=== PATIENT | male | born 1970 | race Caucasian/White ===

== ENCOUNTER 2016-05-26 11:21 | Emergency (ER) | payer OTHER, MEDICAID ==
[~2016-05-26] VITALS: Wt 98.0 kg
[~2016-05-26 11:21] MED LIST: BEN50 PO; CLIN-73 PO
[2016-05-26] MEDS ORDERED: SOD CHLORIDE 0.9% 1,000 ML IV STA (12:21)
[2016-05-26 12:35] LABS: ADD SCAN DIFF NO
[2016-05-26 12:37] LABS: BASOPHIL # 0.1 10^3/ul (0.0-0.1); BASOPHILS % 0.4 % (0.0-2.0); EOSINOPHILS # 0.1 10^3/ul (0.0-0.5); EOSINOPHILS % 0.5 % (0.0-7.0); HEMATOCRIT 41.6 % (42.0-52.0); HEMOGLOBIN 13.9 g/dl (14.0-18.0); LYMPHOCYTES # 1.5 10^3/ul (0.8-2.9); LYMPHOCYTES % 13.2 % (15.0-51.0); MEAN CORPUSCULAR HEMOGLOBIN 29.3 pg (29.0-33.0); MEAN CORPUSCULAR HGB CONC 33.4 g/dl (32.0-37.0); MEAN CORPUSCULAR VOLUME 87.6 fl (82.0-101.0); MEAN PLATELET VOLUME 9.1 fl (7.4-10.4); MONOCYTE # 0.5 10^3/ul (0.3-0.9); MONOCYTES % 4.4 % (0.0-11.0); NEUTROPHIL # 9.4 10^3/ul (1.6-7.5); NEUTROPHILS % 80.8 % (39.0-77.0); PLATELET COUNT 447 10^3/UL (140-415); RED BLOOD COUNT 4.75 10^6/ul (4.70-6.10); RED CELL DISTRIBUTION WIDTH 12.2 % (11.5-14.5); WHITE BLOOD COUNT 11.6 10^3/ul (4.8-10.8)
[2016-05-26 13:16] LABS: ALBUMIN 4.2 g/dl (3.3-4.9); CHLORIDE 99 mmol/L (97-110); SODIUM 141 mmol/L (135-144)
[2016-05-26 13:17] LABS: POTASSIUM 3.7 mmol/L (3.5-5.1)
[2016-05-26 13:18] LABS: CREATININE 0.66 mg/dl (0.61-1.24)
[2016-05-26 13:19] LABS: ALANINE AMINOTRANSFERASE 51 IU/L (13-69); ALBUMIN/GLOBULIN RATIO 1.44; ALKALINE PHOSPHATASE 79 IU/L (42-121); ANION GAP 15 (8-16); ASPARTATE AMINO TRANSFERASE 24 IU/L (15-46); BILIRUBIN,INDIRECT 0.8 mg/dl (0-1.1); BILIRUBIN,TOTAL 0.8 mg/dl (0.2-1.3); BLOOD UREA NITROGEN 10 mg/dl (7-20); CARBON DIOXIDE 31 mmol/L (21-31); TOTAL PROTEIN 7.1 g/dl (6.1-8.1)
[2016-05-26 13:20] LABS: CALCIUM 8.8 mg/dl (8.4-10.2); GLUCOSE 150 mg/dl (70-220)
[2016-05-26] MEDS ORDERED: LIDOCAINE/MYLANTA 40 ML BTL PO STA (13:23)
[2016-05-26] MEDS ORDERED: FAMOTIDINE 20 MG TAB PO STA (13:23)
[2016-05-26] MEDS ORDERED: BELLADONNA/PHENOBARBITAL TAB PO STA (13:23)
[2016-05-26] MEDS ORDERED: FAMO40TA52 PO (13:26)
[2016-05-26] MEDS ORDERED: MAG355OR14 PO (13:26)
[2016-05-26 13:34] LABS: TROPONIN-I < 0.012 ng/ml (0.00-0.12)
[2016-05-26 13:53] VITALS: BP 124/74; PULSE 59; RESP 18
--- NOTE | 2016-05-26 14:34 | ERD ---
ER Documentation Chief Complaint Date/Time DATE: 05/26/16 TIME: 14:31 Chief Complaint GENERAL BODY PAIN, HEADACHE, SORE THROAT AND COUGH X 3 DAYS HPI 46-year-old man presents with multiple vague symptoms including URI symptoms and body aches one month ago which resolved and then returned about 2 weeks ago although this most recent episode was associated with epigastric discomfort and intermittent episodes of diarrhea. He denies blood per rectum or melena, no mucus in his stools, no weakness in his arms or legs, no headache, no slurred speech, no fevers or chills. He complains of a sore throat and other URI symptoms for about 2 weeks but denies chest pain or shortness of breath. His epigastric pain is sharp, nonexertional nonradiating. Patient denies weight loss. ROS All systems reviewed and are negative except as per history of present illness. Medications Home Meds Active Scripts Famotidine* (Famotidine*) 40 Mg Tablet, 40 MG PO DAILY for PAIN, #30 TAB Prov:ALONSO HICKMAN MD 05/26/16 Mag Hydrox/Al Hydrox/Simeth (Maalox Advanced Suspension) 355 Ml Oral.susp, 2 TSP PO TID for PAIN AND/OR INFLAMMATION, #24 OZ Prov:ALONSO HICKMAN MD 05/26/16 Clindamycin Hcl* (Clindamycin Hcl*) 300 Mg Capsule, 300 MG PO TID for 10 Days, CAP Prov:KENNETH THAKKAR NP 09/17/14 Diphenhydramine Hcl* (Benadryl*) 50 Mg Cap, 50 MG PO Q6 Y for ITCHING, #30 CAP Prov:KENNETH THAKKAR NP 09/17/14 Allergies Allergies: Coded Allergies: Penicillins (Verified Allergy, Unknown, 09/16/14) PMhx/Soc None History of Surgery: No Anesthesia Reaction: No Hx Neurological Disorder: No Hx Respiratory Disorders: No Hx Cardiac Disorders: No Hx Psychiatric Problems: No Hx Miscellaneous Medical Probl: No Hx Alcohol Use: No Hx Substance Use: No Hx Tobacco Use: No Smoking Status: Never smoker FmHx Family History: No diabetes Physical Exam Vitals Vital Signs Date Time Temp Pulse Resp B/P Pulse Ox O2 Delivery O2 Flow Rate FiO2 05/26/16 13:53 59 18 124/74 98 Room Air 05/26/16 11:27 98.0 72 18 139/80 99 Physical Exam GENERAL: Well-developed, well-nourished, well-hydrated, in no apparent distress , looks nontoxic in appearance HEENT: Moist mucous membranes, pink conjunctiva, no cervical spine tenderness or step-off deformities, no goiter, no jaundice or icterus, extraocular movements intact without pain. No submandibular induration, and no pharyngeal erythema NEURO: Alert and oriented 3, cranial nerves II through XII intact bilaterally, pupils equal round reactive to light, no focal deficits or facial asymmetry, sensation intact distally Strength 5/5 in upper and lower extremities bilaterally CARDIAC: Regular rate and rhythm, no murmurs rubs or gallops LUNGS: Clear bilaterally no wheezing crackles or stridor ABDOMEN: Soft nontender, no guarding, no rigidity, no rebound, no psoas sign no obturator sign. Normoactive bowel sounds SKIN: Warm and dry to touch, no abrasions, contusions, or hematomas, no lacerations, no ecchymosis, no target lesions, and without ulcers EXTREMITIES: No clubbing cyanosis or edema, calves are bilaterally symmetrical, no Homans sign, no popliteal cord sign. Distal pulses equal and bilateral PSYCH: Normal affect without agitation or irritability Result Diagram: 05/26/16 1217 05/26/16 1217 Results 24 hrs Laboratory Tests Test 05/26/16 12:17 White Blood Count 11.610^3/ul Red Blood Count 4.7510^6/ul Hemoglobin 13.9g/dl Hematocrit 41.6% Mean Corpuscular Volume 87.6fl Mean Corpuscular Hemoglobin 29.3pg Mean Corpuscular Hemoglobin Concent 33.4g/dl Red Cell Distribution Width 12.2% Platelet Count 75695^3/UL Mean Platelet Volume 9.1fl Neutrophils % 80.8% Lymphocytes % 13.2% Monocytes % 4.4% Eosinophils % 0.5% Basophils % 0.4% Nucleated Red Blood Cells % 0.0/100WBC Neutrophils # 9.410^3/ul Lymphocytes # 1.510^3/ul Monocytes # 0.510^3/ul Eosinophils # 0.110^3/ul Basophils # 0.110^3/ul Nucleated Red Blood Cells # 0.010^3/ul Sodium Level 141mmol/L Potassium Level 3.7mmol/L Chloride Level 99mmol/L Carbon Dioxide Level 31mmol/L Anion Gap 15 Blood Urea Nitrogen 10mg/dl Creatinine 0.66mg/dl Glucose Level 150mg/dl Calcium Level 8.8mg/dl Total Bilirubin 0.8mg/dl Direct Bilirubin 0.00mg/dl Indirect Bilirubin 0.8mg/dl Aspartate Amino Transf (AST/SGOT) 24IU/L Alanine Aminotransferase (ALT/SGPT) 51IU/L Alkaline Phosphatase 79IU/L Troponin I < 0.012ng/ml Total Protein 7.1g/dl Albumin 4.2g/dl Globulin 2.90g/dl Albumin/Globulin Ratio 1.44 Lipase 59U/L Current Medications Medications (Trade) Dose Ordered Sig/Bill Route PRN Reason Start Time Stop Time Status Last Admin Dose Admin Sodium Chloride (NS) 1,000 ml @ 1,000 mls/hr Q1H STAT IV 05/26/16 12:21 05/26/16 13:20 DC 05/26/16 12:38 Famotidine (Pepcid) 40 mg ONCE STAT PO 05/26/16 13:23 05/26/16 13:24 DC 05/26/16 13:27 Miscellaneous Medication (Gi Cocktail (2)) 40 ml ONCE STAT PO 05/26/16 13:23 05/26/16 13:24 DC 05/26/16 13:27 Belladonna/ Phenobarbital () 2 tab ONCE STAT PO 05/26/16 13:23 05/26/16 13:24 DC 05/26/16 13:27 Procedures/MDM IV line was established patient was placed on athletic monitor rhythm strip revealed a sinus rhythm at about 60 bpm with upright P and T waves. Patient afebrile. I administered 1 L normal saline intravenously, Maalox suspension 30 cc p.o., and famotidine 40 mg p.o. with good response. EKG performed, read by me revealed a sinus bradycardia 57 bpm, normal axis, with a right ventricular conduction delay and a QRS duration of 118 ms, no concerning ST elevations or depressions noted. CBC was unremarkable, electrolytes are normal, liver function tests were normal , troponin was negative. Patient symptoms improved while here in the ED, he is tolerating p.o., and he had no episodes of diarrhea. Differential diagnoses considered, included but not limited to acute coronary syndrome, pulmonary embolism, aortic dissection, Guillain-Pinon' syndrome, abdominal aortic aneurysm, sepsis, stroke, meningitis, encephalitis, pneumonia, appendicitis, cholecystitis, bowel obstruction, pyelonephritis, nephrolithiasis , cystitis, as well as metabolic, hematologic, and electrolyte abnormalities. As well as abscess, cellulitis, fractures, and dislocations. Patient feels much better at this time, and vital signs are normal, symptoms have improved. I did give strict instructions to return to the ED if symptoms continue or worsen, patient will otherwise follow-up with primary care physician. Patient understood instructions and agreed to plan. Departure Diagnosis: Primary Impression: Abdominal pain Abdominal location: epigastric Qualified Code: R10.13 - Epigastric pain Additional Impression: URI (upper respiratory infection) URI type: acute nasopharyngitis (common cold) Qualified Code: J00 - Acute nasopharyngitis Ruled Out: Urticaria Condition: Good Patient Instructions: Traveler's Diarrhea (6Y-Adult), Abdominal Pain, Unkown Cause, (Male) ALONSO HICKMAN MD May 26, 2016 14:34
== END 2016-05-26 13:55 | disposition home or self-care (01) ==
LOC: FTE 11:21
DX: R10.13 Epigastric pain (principal); J00 Acute nasopharyngitis [common cold]
CPT/HCPCS: 36415; 80053; 83690; 84484; 85025; 93005; 99284; J7030

== ENCOUNTER 2018-02-18 08:18 | Emergency (ER) | payer MEDICAID, OTHER ==
[~2018-02-18] VITALS: Ht 170.2 cm; Wt 76.5 kg
[~2018-02-18 08:18] MED LIST changes: -CLIN-73 PO; +CLIN300C10 PO; +FAMO40TA5 PO; +MAG355OR14 PO
[2018-02-18 08:22] VITALS: BP 121/87; PULSE 81; RESP 16; Ht 170.2 cm; Wt 76.5 kg
[2018-02-18] MEDS ORDERED: IPRATROPIUM (NEB) 0.5 MG/2.5 ML AMP NEB STA (08:35)
[2018-02-18] MEDS ORDERED: DEXAMETHASONE 10 MG/ML 1 ML INJ IM STA (08:35)
[2018-02-18] MEDS ORDERED: ALBUTEROL 0.5% (NEB) 2.5 MG/0.5 ML AMP NEB STA (08:35)
[2018-02-18] MEDS ORDERED: ALBU18HF INHALATION (10:23)
[2018-02-18] MEDS ORDERED: BENZ-6 PO (10:23)
--- NOTE | 2018-02-18 10:38 | ERD ---
ER Documentation Chief Complaint Chief Complaint COUGH X 1 WEEK. FLU LIKE SX HPI 48-year-old male patient with no significant past medical history presents to ED complaining of cough, body aches. Patient reports that he is tried taking NyQuil without any relief. Patient reports that he has had some wheezing. Aki es any fever, chills, recent travel. Denies any chest pain, shortness of breath, abdominal pain, nausea, vomiting. ROS All systems reviewed and are negative except as per history of present illness. Medications Home Meds Active Scripts Albuterol Sulfate* (Ventolin HFA*) 18 Gm Hfa.aer.ad, 2 PUFF INHALATION Q4H, #1 INHALER Prov:TERRELL REYNOSO PA-C 02/18/18 Benzonatate* (Tessalon Perle*) 100 Mg Capsule, 100 MG PO Q8H PRN for COUGH, #20 CAP Prov:TERRELL REYNOSO PA-C 02/18/18 Famotidine* (Famotidine*) 40 Mg Tablet, 40 MG PO DAILY for PAIN, #30 TAB Prov:ALONSO HICKMAN MD 05/26/16 Mag Hydrox/Al Hydrox/Simeth (Maalox Advanced Suspension) 355 Ml Oral.susp, 2 TSP PO TID for PAIN AND/OR INFLAMMATION, #24 OZ Prov:ALONSO HICKMAN MD 05/26/16 Clindamycin Hcl* (Clindamycin Hcl*) 300 Mg Capsule, 300 MG PO TID for 10 Days, CAP Prov:KENNETH THAKKAR NP 09/17/14 Diphenhydramine Hcl* (Benadryl*) 50 Mg Cap, 50 MG PO Q6 PRN for ITCHING, #30 CAP Prov:KENNETH THAKKAR NP 09/17/14 Allergies Allergies: Coded Allergies: Penicillins (Verified Allergy, Unknown, 09/16/14) PMhx/Soc History of Surgery: No Anesthesia Reaction: No Hx Neurological Disorder: No Hx Respiratory Disorders: No Hx Cardiac Disorders: No Hx Psychiatric Problems: No Hx Miscellaneous Medical Probl: No Hx Alcohol Use: No Hx Substance Use: No Hx Tobacco Use: No Smoking Status: Never smoker FmHx Family History: No diabetes, No coronary disease Physical Exam Vitals Vital Signs Date Temp Pulse Resp B/P (MAP) Pulse Ox O2 O2 Flow FiO2 Time Delivery Rate 02/18/18 66 20 95 21 09:18 02/18/18 96.1 81 16 121/87 99 08:22 (98) Physical Exam Const: [id number], well-nourished. In no acute distress. Head: Atraumatic, normocephalic Eyes: Normal Conjunctiva without injection. No purulent discharge. PERRL. EOMI ENT: Normal external ear. Ear canal without erythema. Tympanic membrane pearly bynum without effusion or bulging. Nasal canal clear with normal turbinates. Moist oropharynx without tonsillar exudates. Non-erythematous pharynx. Uvula midline. No drooling. No trismus. Neck: Full range of motion. No meningismus. No cervical lymphadenopathy. Resp: Expiratory and inspiratory wheezing. No rhonchi, rales, or crackles. No accessory muscle use. No retractions. Cardio: Regular rate and rhythm. No murmurs, rubs or gallops. Abd: Soft, non tender, non distended. Normal bowel sounds. No palpable masses. No rebound tenderness. No guarding. Skin: No petechiae or rashes Back: No midline tenderness. No CVA tenderness. Ext: No cyanosis, or edema. Neur: Awake and alert. Psych: Normal Mood and Affect Results 24 hrs Current Medications Medications Dose Sig/Bill Start Time Status Last (Trade) Ordered Route PRN Stop Time Admin Dose Reason Admin Albuterol 10 mg ONCE STAT 02/18/18 DC 02/18/18 (Proventil NEB 08:35 09:17 0.5% (Neb)) 02/18/18 08:38 Ipratropium 1 mg ONCE STAT 02/18/18 DC 02/18/18 [place] NEB 08:35 09:17 (Atrovent 02/18/18 08:38 0.02% (Neb)) 10 mg ONCE STAT 02/18/18 DC 02/18/18 Dexamethasone IM 08:35 09:08 (Decadron) 02/18/18 08:38 Procedures/MDM 48-year-old male patient with no significant past medical history presents to ED complaining of cough, body aches. Patient is afebrile and nontoxic-appearing. Patient was noted to have some wheezing, therefore was treated with Decadron, Albuterol, Atrovent. His symptoms have improved. Chest x-ray shows no evidence of pneumonia, pneumothorax, pleural effusion. Thi s patient presents to the ED with symptoms consistent with a viral acute upper respiratory infection. Patient's physical exam include lungs which were clear to auscultation and a normal pulse oximetry. There is a low suspicion for pneumonia, pneumothorax, mononucleosis, pulmonary embolism, epiglottitis, otitis media, otitis externa, viral/strep pharyngitis, sinusitis, myocarditis, pericarditis, endocarditis, peritonsillar abscess, mastoiditis, retropharyngeal abscess, meningitis, sepsis, acute abdomen or other emergent conditions. Fluids, rest, and symptomatic treatment are recommended for the management of patient's symptoms. Diagnosis: Cough Discharge medications: Abena Brown Patient was instructed to return to the ED for any new or worsening symptoms. They should otherwise follow up with the primary care provider within 2-3 days. The patient's questions were answered at the time of discharge. Patient understood and agreed with discharge management. Departure Diagnosis: Primary Impression: Cough Condition: Stable Patient Instructions: Uri, Viral W/ Wheezing (Adult) Referrals: COMMUNITY CLINICS YOU HAVE RECEIVED A MEDICAL SCREENING EXAM AND THE RESULTS INDICATE THAT YOU DO NOT HAVE A CONDITION THAT REQUIRES URGENT TREATMENT IN THE EMERGENCY DEPARTMENT. FURTHER EVALUATION AND TREATMENT OF YOUR CONDITION CAN WAIT UNTIL YOU ARE SEEN IN YOUR DOCTORS OFFICE WITHIN THE NEXT 1-2 DAYS. IT IS YOUR RESPONSIBILITY TO MAKE AN APPOINTMENT FOR FOLOW-UP CARE. IF YOU HAVE A PRIMARY DOCTOR --you should call your primary doctor and schedule an appointment IF YOU DO NOT HAVE A PRIMARY DOCTOR YOU CAN CALL OUR PHYSICIAN REFERRAL HOTLINE AT IF YOU CAN NOT AFFORD TO SEE A PHYSICIAN YOU CAN CHOSE FROM THE FOLLOWING [facility] CL[facility] [address] [facility]. [facility] [address] [facility]. [facility] [address] [facility]. [facility] [address] [facility]. [facility] [address] [facility]. [facility]. [address] [facility]. [facility] YOU HAVE RECEIVED A MEDICAL SCREENING EXAM AND THE RESULTS INDICATE THAT YOU DO NOT HAVE A CONDITION THAT REQUIRES URGENT TREATMENT IN THE EMERGENCY DEPARTMENT. FURTHER EVALUATION AND TREATMENT OF YOUR CONDITION CAN WAIT UNTIL YOU ARE SEEN IN YOUR DOCTORS OFFICE WITHIN THE NEXT 1-2 DAYS. IT IS YOUR RESPONSIBILITY TO MAKE AN APPOINTMENT FOR FOLOW-UP CARE. IF YOU HAVE A PRIMARY DOCTOR --you should call your primary doctor and schedule and appointment IF YOU DO NOT HAVE A PRIMARY DOCTOR YOU CAN CALL OUR PHYSICIAN REFERRAL HOTLINE AT . IF YOU CAN NOT AFFORD TO SEE A PHYSICIAN YOU CAN CHOSE FROM THE FOLLOWING [facility] INSTITUTIONS: [facility] [address] [place] [address] [facility] [address] [place] [address] [facility] [address] [place] [address] [facility] URGENT CARE/SPECIALTIES Additional Instructions: Llame al doctor MAANA y jessica schuyler MIKE PARA DENTRO DE [address].Dgale a la secretaria que nosotros le instruimos hacer esta mike.Avise o llame si smith condicin se empeora antes de la mike. Regresa aqui si peor o no mejor. TERRELL REYNOSO PA-C Feb 18, 2018 10:38
== END 2018-02-18 10:57 | disposition home or self-care (01) ==
LOC: FTE 08:18
DX: R05 Cough (principal)
CPT/HCPCS: 71045; 94664; 96372; 99284; J1100